=== PATIENT | female | born 1995 | race Two or more races ===

== ENCOUNTER 2022-02-09 20:07 | Emergency (ER) | payer OTHER ==
[~2022-02-09] VITALS: Ht 157.5 cm; Wt 83.5 kg
--- NOTE | 2022-02-09 20:32 | NUR ---
TO ER BED 1. BIBS C/O SYNCOPAL EPOSODE AT 1900, ADMITS TO KO, -HEAD INJURY. PT IS ALERT AND ORIENTED. AMBULATORY WITH STEADY GAIT. BREATHING IS EVEN AND NON LABORED. CONNECTED TO MONITOR. AWAITING MD STEARNS
--- NOTE | 2022-02-09 20:48 | NUR ---
SEEN BY MANJU DE LA FUENTE AT BEDSIDE.
--- NOTE | 2022-02-09 21:05 | NUR ---
PATIENT WHEELED TO CT DEPT.
--- NOTE | 2022-02-09 21:17 | NUR ---
CAME BACK FROM CT DEPT. PATIENT PLACED ON SEIZURE PRECAUTION.
[2022-02-09] MEDS ORDERED: IV NS 0.9% 1,000 ML BAG IV ONE (21:30)
[2022-02-09 21:42] LABS: BASOPHILS % (AUTO) 0.3 % (0.0-2.0); EOSINOPHILS % (AUTO) 0.3 % (0.0-6.0); HEMATOCRIT 42 % (33-45); LYMPHOCYTES # (AUTO) 2.3 K/uL (0.8-4.8); LYMPHOCYTES % (AUTO) 19.3 % (20.0-44.0); MEAN CORPUSCULAR HGB CONC 33 g/dl (31.0-36.0); MEAN CORPUSCULAR VOLUME 92 fL (82-100); MONOCYTES # (AUTO) 0.8 K/uL (0.1-1.30); MONOCYTES % (AUTO) 6.9 % (2.0-12.0); NEUTROPHILS # (AUTO) 8.8 K/uL (1.8-8.9); NEUTROPHILS % (AUTO) 73.2 % (43.0-81.0); PLATELET COUNT (AUTO) 237 K/uL (150-450)
[2022-02-09 22:08] LABS: CALCIUM, SERUM 8.3 mg/dL (8.5-10.1); CREATININE 0.7 mg/dL (0.6-1.3); POTASSIUM 3.7 mmol/L (3.5-5.1)
[2022-02-09 22:13] LABS: ALBUMIN 3.5 g/dL (3.4-5.0); BILIRUBIN,DIRECT 0.1 mg/dL (0.0-0.2); BILIRUBIN,TOTAL 0.7 mg/dL (0.2-1.0); TOTAL PROTEIN, SERUM 7.2 g/dL (6.4-8.2)
--- NOTE | 2022-02-09 22:34 | NUR ---
IV CANNULA REMOVED
--- NOTE | 2022-02-09 22:34 | NUR ---
Patient discharged to home in stable condition. Written and verbal after care instructions given. Patient verbalizes understanding of instruction.
[2022-02-09 22:39] VITALS: BP 127/75
== END 2022-02-09 22:40 | disposition home or self-care (01) ==
LOC: ER 20:10
DX: G40.909 Epilepsy, unspecified, not intractable, without status epilepticus (principal)
CPT/HCPCS: 99285; 70450; 93005; 85025; 80048; 83605; 80076; 36415; 82962; J7030